=== PATIENT | male | born 1965 | race Caucasian/White ===

== ENCOUNTER 2017-06-01 08:20 | Emergency (ER) | payer BC ==
[2017-06-01 08:49] VITALS: BP 133/72
--- NOTE | 2017-06-01 09:05 | UC ---
Skin Complaint HPI - HPI Summary HPI Summary: RASH IN THE ANAL AREA X 3 DAYS, SPREADING TO HIS BUTTOCKS, + RED, ITCHY. NO NEW SOAP , DETERGENT, FOOD - History of Current Complaint Chief Complaint: [facility] Time Seen by Provider: 06/01/17 08:53 Stated Complaint: RASH Hx Obtained From: Patient Onset/Duration: Gradual Onset, Lasting Days - 3, Still Present Timing: Constant Onset Severity: Moderate Current Severity: Moderate Pain Intensity: 2 Location: Discrete - ANAL Character: Pruritus, Redness Aggravating Factor(s): Touch Alleviating Factor(s): Nothing Associated Signs & Symptoms: Positive: Rash - Allergy/Home Medications Allergies/Adverse Reactions: Allergies Allergy/AdvReac Type Severity Reaction Status Date / Time No Known Allergies Allergy Verified 06/01/17 08:38 Home Medications: Home Medications Antibacterial Cream 1 applic TOPICAL DAILY PRN 06/01/17 [History Confirmed ] Losartan Potassium & Hydrochlo [Losartan Potassium/Hydroc 100-25 mg] 1 tab PO DAILY 06/01/17 [History Confirmed 06/01/17] Rivaroxaban TAB(*) [Xarelto 10 mg (*)] 10 mg PO DAILY 06/01/17 [History Confirmed 06/01/17] Review of Systems Constitutional: Negative Skin: Rash Eyes: Negative ENT: Negative Respiratory: Negative Cardiovascular: Negative Is Patient Immunocompromised?: No All Other Systems Reviewed And Are Negative: Yes PMH/Surg Hx/FS Hx/Imm Hx - Additional Past Medical History Additional PMH: CLL, DVT - Surgical History Surgical History: Yes Surgery Procedure, Year, and Place: Knee surgery LEFT, 1981 - Family History Known Family History: Positive: Unknown Negative: Diabetes - Social History Alcohol Use: Occasionally Substance Use Type: None Smoking Status (MU): Never Smoked Tobacco Physical Exam Triage Information Reviewed: Yes Appearance: Well-Appearing, No Pain Distress, Well-Nourished Vital Signs: Initial Vital Signs Temp 98.5 F 06/01/17 08:42 Pulse 60 06/01/17 08:42 Resp 18 06/01/17 08:42 BP 133/72 06/01/17 08:42 Pulse Ox 98 06/01/17 08:42 Vital Signs Reviewed: Yes Eye Exam: Normal Eyes: Positive: Conjunctiva Clear ENT Exam: Normal ENT: Positive: Normal ENT inspection, Hearing grossly normal, Pharynx normal Neck: Positive: Supple, Nontender, No Lymphadenopathy Respiratory: Positive: Chest non-tender, Lungs clear, Normal breath sounds Cardiovascular: Positive: RRR, No Murmur, Pulses Normal Skin: Positive: rashes - MACULAR RASH ANAL AREA, Course/Dx - Diagnoses Provider Diagnoses: SKIN YEAST INFECTION Discharge - Discharge Plan Condition: Stable Disposition: HOME Prescriptions: Ketoconazole 2 % CREAM (NF) [Nizoral 2% CREAM (NF)] 1 applic TOPICAL BID #60 gm Patient Education Materials: Skin Yeast Infection (ED) Referrals: Rossana Lamas DO [Primary Care Provider] - 7 Days
== END 2017-06-01 09:03 | disposition home or self-care (01) ==
LOC: UCCORT 08:20
DX: B37.2 Candidiasis of skin and nail (principal); C91.10 Chronic lymphocytic leukemia of B-cell type not having achieved remission; Z86.718 Personal history of other venous thrombosis and embolism
CPT/HCPCS: 99212; G0463